=== PATIENT | female | born 1985 | race Hispanic/Latino ===

== ENCOUNTER 2017-09-09 18:12 | Emergency (ER) | payer SELFPAY ==
[~2017-09-09 18:12] MED LIST: ASCO120C2 PO; FERR500P12 PO; PREN1TAB80 PO
[2017-09-09] MEDS ORDERED: KETOROLAC TROMETHAMINE 60 MG/2 ML VIAL ONE (19:30)
== END 2017-09-09 19:45 | disposition home or self-care (01) ==
LOC: EDH 18:12
DX: S93.691A Other sprain of right foot, initial encounter (principal); X50.0XXA Overexertion from strenuous movement or load, initial encounter; Y93.89 Activity, other specified; Y92.89 Other specified places as the place of occurrence of the external cause; Y99.8 Other external cause status
CPT/HCPCS: 73610; 73630; 81025; 96372; 99285; J1885